=== PATIENT | female | born 1980 | race Hispanic/Latino ===

== ENCOUNTER 2024-05-31 07:23 | Outpatient (CLI) | payer BC | END 2024-05-31 07:24 | disposition home or self-care (01) | LOC: ULT 07:23 | PROVIDERS: ATTEND Student in an Organized Health Care Education/Training Program | DX: K76.0 Fatty (change of) liver, not elsewhere classified (principal); R16.0 Hepatomegaly, not elsewhere classified; Z90.49 Acquired absence of other specified parts of digestive tract | CPT/HCPCS: 76705 ==